=== PATIENT | female | born 1975 | race American Indian/Alaskan Native ===

== ENCOUNTER 2020-02-15 17:39 | Emergency (ER) | payer OTHER ==
[2020-02-15 17:48] VITALS: BP 111/73
[2020-02-15] MEDS ORDERED: ACETAMINOPHEN 325 MG TAB PO ONE (17:55)
[2020-02-15] MEDS ORDERED: ACETAMINOPHEN 325 MG TAB ONE (17:58)
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
== END 2020-02-15 20:58 | disposition home or self-care (01) ==
LOC: ED 17:39
DX: S70.01XA Contusion of right hip, initial encounter (principal); S43.401A Unspecified sprain of right shoulder joint, initial encounter; R07.89 Other chest pain; V46.7XXA Person on outside of car injured in collision with other nonmotor vehicle in traffic accident, initial encounter; Y93.89 Activity, other specified; Y92.488 Other paved roadways as the place of occurrence of the external cause; Y99.8 Other external cause status
CPT/HCPCS: 71046; 93005